=== PATIENT | female | born 1985 | race Two or more races ===

== ENCOUNTER 2025-01-10 21:48 | Emergency (ER) | payer MEDICAID ==
[~2025-01-10] VITALS: Ht 162.6 cm; Wt 70.0 kg
[~2025-01-10 21:48] MED LIST: DOCU-94 PO; HYDR-4902 PO; IBUP-1456 PO; LEVO50CA3 PO; PREN1TAB71 OR
[2025-01-10 23:57] VITALS: BP 136/83; PULSE 89; RESP 17; TEMP 99.5; O2SAT 98
[2025-01-11] MEDS: LIDOCAINE 1% HCL (LOCAL ANESTH.) INJ 20ML MDV ID ONE (00:49)
--- NOTE | 2025-01-11 01:20 | DVH ---
EXAM: XY L FOREARM XRAY HISTORY: PAIN FALL INJURY COMPARISON: None TECHNIQUE: AP and lateral views of the left forearm were performed. FINDINGS/IMPRESSION: Minimally displaced fracture through the radial head.
--- NOTE | 2025-01-11 02:05 | ED.PDOC ---
Gillian. trauma (HPI) HPI Comments PT PRESENTED TO ED FOR LEFT EYEBROW LACERATION APPROX. 1/2 IN [facility] WITH FATTY TISSUE EXPOSURE. PT STATED SHE WAS MOPPING AT HOME, SLIPPED, FELL AND HIT HEAD. PT DENIED (-) LOC. PT STATED HEADACHE, LEFT HEAD PAIN, AND LEFT SIDE BODY PAIN. GCS-15, ALL VSS Chief Complaint: Laceration Time Seen by MD: 21:58 Reviewed notes: Nurses Notes, Medications, Allergies Allergies: Coded Allergies: NO KNOWN ALLERGIES (Unverified , 02/06/24) Home Meds Active Scripts Ibuprofen (Ibuprofen) 800 Mg Tab, 1 TAB PO TID PRN for 7 Days, #21 TAB Prov:LIN CAMARENA LADLE LINER HELPER 01/11/25 Ibuprofen (Ibuprofen) 800 Mg Tab, 800 MG PO TID PRN for 5 Days, #15 TAB Prov:CHRISTY CABA DO 02/07/24 Hydrocodone-Acetaminophen (Hydrocodone Bitartrate/AC 5-325 mg) 1 Tab Tab, 1 TAB PO Q6HPRN PRN for 7 Days, #28 TAB Prov:CHRISTY CABA 02/07/24 Docusate Sodium (Colace) 100 Mg Cap, 1 CAP PO BID, #60 CAP 2 Refills Prov:CHRISTY CABA DO 02/07/24 Reported Medications Levothyroxine Sodium (Levothyroxine Sodium) 50 Mcg Cap, 50 MCG PO DAILY, CAP 02/06/24 Vit W/ Ferrous Fumara (PNV PLUS MULTIVI) Plus Tab, 1 OR, TAB 02/04/24 Information Source: Patient Mode of Arrival: Ambulatory Past Medical History PAST MEDICAL HISTORY: Denies Surgical History: Denies all surgeries SPED TEACHER History: No Pertinent SPED TEACHER History Family History Family History: Reviewed,noncontributory to illness Social History Smoker: Non-Smoker Alcohol: Denies ETOH Use Drugs: Denies Drug Use Constitutional: denies: chills, diaphoresis, fatigue, fever, malaise, sweats, weakness, others EENTM: denies: blurred vision, double vision, ear bleeding, ear discharge, ear drainage, ear pain, ear ringing, eye pain, eye redness, hearing loss, mouth pain, mouth swelling, nasal discharge, nose bleeding, nose congestion, nose pain, photophobia, tearing, throat pain, throat swelling, voice changes, others Respiratory: denies: cough, hemoptysis, orthopnea, SOB at rest, shortness of breath, SOB with excertion, stridor, wheezing, others Cardiovascular: denies: chest pain, dizzy spells, diaphoresis, Dyspnea on exertion, edema, irregular heart beat, left arm pain, lightheadedness, palpitations, PND, syncope, others Gastrointestinal: denies: abdomen distended, abdominal pain, blood streaked bowels, constipated, diarrhea, dysphagia, difficulty swallowing, hematemesis, melena, nausea, poor appetite, poor fluid intake, rectal bleeding, rectal pain, vomiting, others Genitourinary: denies: abnormal vagina bleeding, burning, dyspareunia, dysuria, flank pain, frequency, hematuria, incontinence, pain, , vagina dis charge, urgency, others Neurological: denies: dizziness, fainting, headache, left sided numbness, left sided weakness, numbness, paresthesia, pre-existing deficit, right sided numbness, right sided weakness, seizure, speech problems, tingling, tremors, weakness, others Musculoskeletal: reports: others (LEFT FOREARM PAIN ); denies: back pain, gout, joint pain, joint swelling, muscle pain, muscle stiffness, neck pain Integumetry: reports: bruises, laceration (ABOVE LEFT EYE ); denies: change in color, change in hair/nails, dryness, lesions, lumps, rash, wounds, others Allergic/Immunocompromised: denies: Difficulty Healing, Frequent Infections, Hives, Itching, others Hematologic/Lymphatic: denies: anemia, blood clots, easy bleeding, easy bruising, swollen glands, others Endocrine: denies: excessive hunger, excessive sweating, excessive thirst, excessive urination, flushing, intolerance to cold, intolerance to heat, unexplained weight gain, unexplained weight loss, others Psychiatric: denies: anxiety, bipolar disorder, depression, hopeless, panic disorder, schizophrenia, sleepless, suicidal, others Physical Exam General Appearance: No Apparent Distress, Normal HEENT: Normal ENT Inspection, Pharynx Normal, TMs Normal Neck: Full Range of Motion, Non-Tender Respiratory: Chest Non-Tender, Lungs Clear, No Accessory Muscle Use, No Resp iratory Distress, Normal Breath Sounds Cardiovascular: No Edema, No JVD, No Murmur, No Gallop, Normal Peripheral Pulses, Regular Rate/Rhythm Breast Exam: Deferred Gastrointestinal: No Organomegaly, Non Tender, No Pulsatile Mass, Normal Bowel Sounds, Soft Genitalia: Deferred Pelvic: Deferred Rectal: Deferred Extremities: Normal capillary refill, Normal inspection, Normal range of motion, Non-tender, No pedal edema Musculoskeletal : Location: Left Extremity Location: Arm (TENDERNESS WITH PALPATION OVER LEFT FOREARM PROXIMAL ASPECT TRACE SWELLING WITH NO ECCHYMOSIS STRENGTH SENSORY MOTION INTACT POSITIVE RADIAL PULSE) Apperance: Normal Neurologic: Alert, american studies professor II-XII nml as Tested, No Motor Deficits, Normal Affect, Normal Mood, No Sensory Deficits Cerebellar Function: Normal Reflexes: Normal Skin: Dry, Lacerations (1.5cm LACERATION ABOVE LEFT EYE. BLEEDING CONTROLLED ), Normal Color, Warm Lymphatic: No Adenopathy Was a procedure done? Was a procedure done?: Yes Sedation Sedation?: No Informed consent obtained: Yes Laceration Repair : Location LEFT PROXIMAL FOREARM Length 1.5 CM Anesthetic: Lidocaine, Bupivacaine, Without epi Laceration Repair Prep: Saline, Betadine Laceration Repair Wound Comple: epidermis/dermis repair Laceration Repair: Number of sutures (4), Simple Informed consent obtained: Yes Risks, benefits, and alternati: Yes Notes PATIENT TOLERATED WELL WITH MINIMAL BLOOD LOSS Differential Diagnosis Multiple Trauma: Fractures, Contusion, Hematoma X-Ray, Labs, Meds, VS Vital Signs Date Time Temp Pulse Resp B/P (MAP) Pulse Ox O2 Delivery O2 Flow Rate FiO2 01/10/25 23:57 89 17 98 Room Air 01/10/25 23:57 99.5 89 17 136/83 (100) 98 99.5 01/10/25 22:08 99.0 98 16 159/71 (100) 99.0 X-Ray, Labs, Meds, VS Comment SEE PROCEDURE NOTE FOR LACERATION REPAIR. LEFT FOREARM X-RAY SHOWS PROXIMAL MINIMALLY DISPLACED RADIAL HEAD FRACTURE. FINDINGS. PATIENT PLACED IN SPLINT. ADVISED TO FOLLOW UP IN 5-7 DAYS FOR SUTURE REMOVAL, FOLLOW UP PCP IN 1-2 DAYS CONSIDER FURTHER IMAGING IF SYMPTOMS PERSIST PATIENT AGREES WITH DISCHARGE PLAN OF CARE Time of 1ST Reevaluation: 02:07 Reevaluation 1ST: Improved Patient Education/Counseling: Diagnosis, Treatment, Prognosis, Need For Follow Up Family Education/Counseling: Diagnosis, Treatment, Prognosis, Need For Follow Up Departure 1 Departure Time of Disposition: 02:08 Impression: Primary Impression: Fracture of radial head, left, closed Qualified Codes: S52.125A - Nondisplaced fracture of head of left radius, initial encounter for closed fracture Additional Impression: Forehead laceration Qualified Codes: S01.81XA - Laceration without foreign body of other part of head, initial encounter Disposition: HOME / SELF CARE / HOMELESS Condition: Stable e-Prescriptions Ibuprofen (Ibuprofen) 800 Mg Tab 1 TAB PO TID PRN for 7 Days, #21 TAB Prov: LIN CAMARENA 01/11/25 Discharged With: Relative Critical Care Note Critical Care Time?: No Stability Stability form required: No LIN CAMARENA Jan 11, 2025 02:05
[2025-01-11] MEDS ORDERED: IBUP-1456 PO (02:10)
[2025-01-11] MEDS: ACETAMINOPHEN 500 MG TAB or CAP PO ONE (02:23)
== END 2025-01-11 02:33 | disposition home or self-care (01) ==
LOC: ER 21:48
DX: S52.122A Displaced fracture of head of left radius, initial encounter for closed fracture (principal); S01.112A Laceration without foreign body of left eyelid and periocular area, initial encounter; Z79.1 Long term (current) use of non-steroidal anti-inflammatories (NSAID); Z79.899 Other long term (current) drug therapy; W01.0XXA Fall on same level from slipping, tripping and stumbling without subsequent striking against object, initial encounter; Y93.89 Activity, other specified; Y92.009 Unspecified place in unspecified non-institutional (private) residence as the place of occurrence of the external cause; Y99.8 Other external cause status
CPT/HCPCS: 12011; 29125; 73090; 99283; J2003